=== PATIENT | female | born 1985 | race Hispanic/Latino ===

== ENCOUNTER 2024-12-10 14:12 | Emergency (ER) | payer BC, OTHER ==
[~2024-12-10] VITALS: Ht 157.5 cm; Wt 72.6 kg
[~2024-12-10 14:12] MED LIST: DOCU-116 PO; IBUP-1493 PO; PREN1TAB89 PO; TYL3 PO
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
--- NOTE | 2024-12-10 15:47 | HMCIMG ---
Exam Type: CHEST 1VW Clinical Information: Pain Comparison: None Findings: The lungs are clear of infiltrates. The heart is normal in size. The bony and soft tissue structures of the chest are unremarkable. Impression: Clear lungs.
--- NOTE | 2024-12-10 15:54 | HMCIMG ---
Exam Type: CERV SPINE 2-3VWS Clinical Information: Pain Comparison: None FINDINGS: C1 through the top of T1 are seen on the lateral view. The prevertebral soft tissues are normal. The vertebral bodies are well-aligned and without fracture. The disc spaces are normal as is the distance between the arch of C1 and the dens. The spinolaminar line is smooth and the spinous process tips intact. The AP view of the cervical spine is unremarkable. IMPRESSION: NEGATIVE CERVICAL SPINE SERIES.
[2024-12-10 16:19] VITALS: BP 135/78; PULSE 83; RESP 16; TEMP 98.1; O2SAT 98
[2024-12-10] MEDS ORDERED: NAPR-1194 PO (16:29)
[2024-12-10] MEDS ORDERED: METH-811 PO (16:29)
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
[2024-12-10] MEDS: methoCARBamol 500 MG TABLET PO ONE (16:38)
--- NOTE | 2024-12-10 16:42 | NUR ---
DC PEND REG PROCESS
== END 2024-12-10 17:17 | disposition home or self-care (01) ==
LOC: EDH 14:12
DX: M54.2 Cervicalgia (principal); R07.89 Other chest pain; I10 Essential (primary) hypertension; Z88.0 Allergy status to penicillin; Z79.899 Other long term (current) drug therapy; Z98.890 Other specified postprocedural states; V89.2XXA Person injured in unspecified motor-vehicle accident, traffic, initial encounter; Y93.89 Activity, other specified; Y92.488 Other paved roadways as the place of occurrence of the external cause; Y99.8 Other external cause status
CPT/HCPCS: 71045; 72040; 99283